=== PATIENT | male | born 1960 | race Caucasian/White ===

== ENCOUNTER 2025-06-26 15:25 | Emergency (ER) | payer OTHER, SELFPAY ==
--- OUTSIDE RECORDS SUMMARY | 2025-06-23 23:37 | XMS_ITS | Continuity of Care Document ---
Author Organization [facility] ter Address [address] [place] [id number]- Care Team Providers Care Incident Response Manager Name Role Phone Zechariah FORTE, Sohail Primary Care Physici an [id number] Date(s): 06/23/25 - 06/23/[address] [address]- Discharge Disposition: A-D/C Home Attending Physician: Meri Zuniga DO Admitting Physician: Meri Zuniga DO Referring Physician: Not on Staff, Referring MD Encounter Type: Disch ES Allergies, Adverse Reactions, Alerts Substance Criticality Severity Reaction Reaction Severity Status sulfamethoxazole-trimetho prim <not entered> Active acetaZOLAMIDE <not entered> Ac tive sulfa drugs hives Active Immunizations Given and Recorded Vaccine Date Status Refusal Reason pneumococcal 23-valent vaccine 12/28/20 Given influenza virus vaccine, inactivated 12/28/20 Give n Medications cloNIDine 0.1 mg oral tablet See Instructions, TAKE 1 TABLET TWICE A DAY NEEDED FOR ANXIETY, # 180 tablet, Refills 1, Tot. Refills 1, Maintenance, 02/11/23 5:09:00 PM EDT, Instructions Replace Required Details, Route to Pharmacy Electronically, [facility], 173, cm, 12/31/22 15:53:00 EST, Height, 86.5, kg, 10/06/22 15:50:00 EST, Dry Weight Start Date: 02/11/23 Status: Ordered Quantity: 180.0 Unit: tablet Repeat number: 2 doxazosin 1 mg oral tablet 1, tablet, By Mouth, Daily, # 90 tablet, Refills 1, Maintenance, 05/15/25 4:07:00 PM EDT, Route to Pharmacy Electronically, [id number], 173, cm, 12/18/24 7:24:00 EST, Height, 84, kg, 12/15/24 1:02:00 EST, Dry Weight Start Date: 05/15/25 Status: Ordered Quantity: 90.0 Unit: tablet Repeat number: 1 hydrOXYzine pamoate 50 mg oral capsule 1 capsule = 50 mg, By Mouth, 2 times a day, PRN Anxiety, # 90 capsule, 0 Refills, Maintenance, 10/16/24 1:32:00 PM EST, Capsule, Partial fill upon patient request if the prescription is for a schedule II opioid drug. Start Date: 10/16/24 Status: Ordered Quantity: 90.0 Unit: capsule Repeat number: 1 lidocaine 4% topical film 1 patch, Topically, 2 times a day, # 6 each, 0 Refills, Maintenance, 06/22/25 7:14:00 PM EDT, Film, [facility]/pharmacy #[id number], Partial fill upon patient request if the prescription is for a schedule II opioiddrug., 1 patch Topically 2 times a day, 173, cm, 06/22/25 11:51:00 EDT, Height, 79, kg, 06/22/25 11:51:00 EDT, Dry Weight Start Date: 06/22/25 Status: Ordered Quantity: 6.0 Unit: each Repeat number: 1 QUEtiapine 100 mg oral tablet 100 mg, 1, tablet, By Mouth, Daily at bedtime, Refills 0, Maintenance, 10/16/24 1:34:00 PM EST, Partial fill upon patient request if the prescription is for a schedule II opioid drug. Start Date: 10/16/24 Status: Ordered Repeat number: 1 tamsulosin 0.4 mg oral capsule 0.4 mg, 1, capsule, By Mouth, Daily, # 30 capsule, Refills 0, Maintenance, 10/16/24 1:33:00 PM EST,Partial fill upon patient request if the prescription is for a schedule II opioid drug. Start Date: 10/16/24 Status: Ordered Quantity: 30.0 Unit: capsule Repeat number: 1 Problem List Condition Confirmation Course Effective Dates Status Health St atus Informant Adjustment disorder Confirmed Active Alcoholism Confirmed Active ALT (SGPT) level raised Confirmed Active Benign prostatic hyperplasia Confirmed Active Cirrhosis of liver Confirmed Active Cough Confirmed Active H/O: Deep vein thrombosis Confirmed Active Hip pain, bilateral Confirmed Active Internal hemorrhoids Confirmed Active Hyperlipidemia, mixed Confirmed Active Nondependent alcohol abuse, episodic Confirmed Active Obesity Confirmed Active Obstructive sleep apnea syndrome Confirmed Active Pulmonary emboli Confirmed Active Elevated PSA Confirmed Active Social History Social History Type Response Smoking Status Never (less than 100 in lifetime) entered on: 02/12/21 Sex Male Sex Representation Male (finding) Patient Care team information Care Team Personnel Name: Abel Vasquez RN Position: [facility] RN Member Role: Primary Care Nurse Name: Ashwini Marcial LPN Position: [facility] RN Member Role: Primary Care Nurse Name: Onelia Preciado RN Position: [facility] RN Member Role: Primary Care Nurse Name: Andrew Barrett Position: [facility] PCO Associate Professional Member Role: [employer] Provider Address: [address] [place] [id number] DD Telecom: Name: Chilango Gonzalez RN Position: [facility] RN Member Role: Primary Care Nurse Name: Chantale Reardon RN Position: [facility] RN Member Role: Primary Care Nurse Name: Mis Hopper RN Position: [facility] RN Member Role: Primary Care Nurse Name: Sohail Apple MD Position: [facility] Physician - Primary Care Member Role: PCP Address: [address] [place] [id number] Telecom: Name: Anne Mistry RN Position: [facility] RN Member Role: Primary Care Nurse Name: Roger Moore RN Position: [facility] RN Member Role: Primary Care Nurse Name: Leonarda Burkett RN Position: [facility] RN Member Role: Primary Care Nurse Name: Richa Joshi RN Position: [facility] RN Member Role: Primary Care Nurse Name: Radha Hinson RN Position: [facility] RN Member Role: Primary Care Nurse Name: Analilia Burks RN Position: [facility] Hospital Facilities Manager Member Role: Primary Care Nurse Care Team Related Persons Name: DENISE BOYD Name: NONE, PT STS Insurance Providers Guarantor name: [facility] Information #: 1 Payer: [employer] MED[employer]ARE ADV PPO Payer Identifier: AISLINN Member Number: [id number] Group Number: [id number] Subscriber Identifier: [id number] Relationship to Subscriber: self Coverage Type: Medicare PPO Coverage Verification Date: Telecom: AISLINN Address:
[2025-06-26 15:44] VITALS: BP 148/62; BP 148/87; PULSE 71; PULSE 88; RESP 18; TEMP 36.8; O2SAT 97; O2SAT 98; BMI 26.6
--- NOTE | 2025-06-26 15:48 | ED_ITS ---
HPI - Alcohol General Chief Complaint: ETOH/Substance Use Stated Complaint: ETOH, chronic back pain Time Seen by Provider: 06/26/25 15:46 Source: patient and RN notes reviewed Mode of arrival: EMS Limitations: no limitations History of Present Illness ED Provider: Germán Lema PA-C HPI narrative: 65-year-old male with medical history of alcohol use disorder presents to the ED by EMS after self calling for request for detox. Patient states he drinks approximately 3-6 25 oz ?Natty dadkatelin's? daily. Patient states he began drinking in 2003 after his son past. Patient states he has chronic thoracic back pain, that is aggravating him today but no change in quality or intensity from his usual baseline. Patient states he does not have history of alcohol withdrawal, has never experienced alcohol withdrawal seizures, and no prior ICU stays to manage alcohol withdrawal. Patient denies chest pain, shortness of breath, nausea, vomiting, headache, visual changes, visual/auditory/tactile hallucinations, SI, HI. Related Data Allergies Allergy/AdvReac Type Severity Reaction Status Date / Time Sulfa (Sulfonamide Allergy Unknown Verified 06/26/25 15:57 Antibiotics) Review of Systems 2 Review of Systems: CONST: Negative for fever, body aches and chills. HENT: Negative for neck pain/stiffness, headache, congestion, sore throat, swelling. EYES: Negative for discharge/pain or vision changes. RESP: Negative for cough/hemoptysis and shortness of breath. CV: Negative chest pain, difficulty breathing, palpitations. ABD: Negative pain, nausea, vomiting. : Negative increase frequency, dysuria, blood in urine or stool. MUSC: Negative for muscle aches, edema. POS chronic thoracic back pain SKIN: Negative rash, lesions/sores. NEURO: Negative headache, dizziness, weakness Yes all other systems are reviewed and are negative PMFSH Past Medical History Attestation statement: The following information was validated with the patient. Social History Social History Smoked in Last 30 Days: No Use of substances other than those prescribed or required for medical reasons: No Advance Directives: No Advance Directives Information Provided: Yes Physical Exam ED Vital Signs: Vital Signs - 24 hr 06/26/25 15:44 06/26/25 18:00 Temperature 98.2 F Pulse Rate 71 82 Respiratory Rate 18 18 Blood Pressure 148/87 H 152/83 H Pulse Oximetry 98 97 Oxygen Delivery Method Room Air Room Air BMI result Body Mass Index 26.6 GENERAL APPEARANCE: ?AxOx4, disheveled appearing, with alcoholic odor on breath, no acute distress. HEENT: ?NC, AT. MMM. EOMI, clear conjunctiva, oropharynx clear. NECK: ?Supple without lymphadenopathy.? No stiffness or restricted ROM. HEART:? Normal rate and regular rhythm, normal S1/S2, no m/r/g LUNGS:? CTAB, moving air well. No crackles or wheezes are heard. ABDOMEN: ?Soft, nontender, nondistended with good bowel sounds heard. BACK: No CVAT, no obvious deformity. TTP over thoracic paraspinal muscles of T5 through T10, no midline tenderness, no bony abnormalities palpated, no overlying skin changes. EXTREMITIES: ?Without cyanosis, clubbing or edema. NEUROLOGICAL: ?Grossly nonfocal. Alert and oriented, moving all 4 extremities. Skin: ?Warm and dry without any rash. Medical Decision Making Medical Decision Making MDM Narrative: 65-year-old male with medical history of alcohol use disorder presents to the ED by EMS after self calling for request for detox. Patient states he drinks approximately 3-6 25 oz ?Natty daddy's? daily. Patient states he began drinking in 2003 after his son past. Patient states he has chronic thoracic back pain, that is aggravating him today but no change in quality or intensity from his usual baseline. Patient states he does not have history of alcohol withdrawal, has never experienced alcohol withdrawal seizures, and no prior ICU stays to manage alcohol withdrawal. VSS, BP of 152/83, pulse rate of 82, respiratory rate of 18, patient afebrile with oral temperature of 98.2?, O2 saturation 97% on room air. On physical exam, patient without slurring, patient is somewhat agitated, states he wants to be taken to [facility] for care. Patient with chronic back pain, TTP over thoracic paraspinal muscles through T5 through T10, no midline spinal tenderness, no bony abnormalities. Cardiac exam with normal rate and rhythm, no murmurs/rubs/gallops, lungs clear to auscultation bilaterally, abdomen soft, nontender. Patient denies SI/HI. Is requesting alcohol detox facility, but is picky about where he wants to be sent, refusing [facility] or any other detox in the area. Labs reveal mild leukopenia of 3.8, H and H stable, no electrolyte abnormalities, no significant transaminitis. UA negative for blood or infection. U tox positive for barbiturates, benzodiazepines. ETOH level 263 at 4:35 p.m. Course 19:14- you can cleared by recovery team, given resources to self present at detox. Patient eating sandwich, drinking Gatorade in department. I observed patient ambulating, patient with slow, steady gait due to chronic back pain, however no ataxic gait, no speech slurring. Patient does not have sober ride home, has to walk home. In my clinical opinion, I do not believe that patient is acutely intoxicated at this time, I offered patient hospital phone to call for friend or family member, states he does not have anyone to help him. Vital signs remained stable, patient CIWA score of 0, no signs of withdrawal- less likely alcohol withdrawal Differential Diagnosis Differential Diagnoses: The differential diagnosis associated with the presentation includes Alcohol intoxication Alcohol withdrawal Electrolyte abnormality SI HI Admission/Observation Consideration of admission/observation: Escalation of care including admission/observation considered Lab Data MDM Lab Attestation statement: I reviewed the patient's lab results. 06/26/25 16:35 06/26/25 16:35 Labs: Lab Results 06/26/25 06/26/25 Range/Units 16:16 16:35 WBC 3.8 L (4.8-10.8) X10*3/uL RBC 5.22 (4.60-5.80) X10*6/uL Hgb 15.0 (14.0-18.0) g/dl Hct 43.8 (42.0-52.0) % MCV 83.9 (80.0-98.0) fL MCH 28.7 (27.0-33.0) pg MCHC 34.2 (31.0-36.0) g/dl RDW 15.7 (11.0-16.0) % Plt Count 223 (160-400) X10*3/uL MPV 8.6 L (9.4-12.4) fL Immature Gran % (Auto) 0.3 (0.0-0.4) % Neut % (Auto) 50.4 (45-73) % Lymph % (Auto) 41.5 H (20-40) % Jefferson % (Auto) 3.7 (2-11) % Eos % (Auto) 3.1 (0-4) % Baso % (Auto) 1.0 (0-2) % Lymph # (Auto) 1.6 (1.2-4.9) X10*3/uL Jefferson # (Auto) 0.1 (0.1-1.2) X10*3/uL Eos # (Auto) 0.1 (0.0-0.4) X10*3/uL Baso # (Auto) 0.0 (0.0-0.2) X10*3/uL Abs Immat Gran (auto) 0.01 (0.00-0.03) X10*3/uL Absolute Neuts (auto) 1.9 L (2.0-8.3) x10*3/uL Absolute Nucleated RBC 0.000 (0.0-0.012) X10*3/uL Nucleated RBC % (auto) 0.0 (0.0-0.2) /100WBC Sodium 143 (135-145) mmol/L Potassium 4.0 (3.3-5.1) mmol/L Chloride 109 H (96-108) mmol/L Carbon Dioxide 19 L (22-29) mmol/L Anion Gap 19 (12-20) BUN 8 L (9-16) mg/dL Creatinine 0.90 (0.5-1.4) mg/dL Estim Creat Clear Calc 79.1 Estimated GFR > 60 Random Glucose 86 (60-115) mg/dL Calcium 8.5 (8.4-10.2) mg/dL Magnesium 2.3 (1.6-2.6) mg/dL Total Bilirubin 0.4 (0.0-1.0) mg/dL AST 38 H (5-37) U/L ALT 33 (0-40) U/L Alkaline Phosphatase 99 (39-117) U/L Total Protein 7.9 (6.5-8.0) g/dL Albumin 4.0 (3.5-5.0) g/dL Urine Color Yellow Urine Appearance Clear Urine pH 6.5 (5.0-9.0) Ur Specific Hardy <= 1.005 (1.005-1.025) Urine Protein Negative (Neg-Trace) mg/dL Urine Glucose (UA) Negative (Negative) mg/dL Urine Ketones Negative (Negative) mg/dL Urine Blood Negative (Negative) Urine Nitrite Negative (Negative) Ur Leukocyte Esterase Negative (Negative) Urine Opiates Screen Not Detected (Not Detect) Ur Buprenorphine Scrn Not Detected (Not Detect) ng/mL Ur Oxycodone Screen Not Detected (Not Detect) ng/mL Urine Methadone Screen Not Detected (Not Detect) ng/mL Urine Fentanyl Screen Not Detected (Not Detect) Ur Barbiturates Screen POSITIVE H (Not Detect) Ur Phencyclidine Scrn Not Detected (Not Detect) Ur Amphetamines Screen Not Detected (Not Detect) U Benzodiazepines Scrn POSITIVE H (Not Detect) Urine Cocaine Screen Not Detected (Not Detect) U Marijuana (THC) Screen Not Detected (Not Detect) Ethyl Alcohol 263 mg/dL External Record Review External record reviewed: Inpatient record, Office record and Outpatient record Prescription Management I considered prescription management with: Pain Medication I offered patient Tylenol, ibuprofen for chronic back pain, patient states he has not take any medication, as medications are poison. Chronic Conditions Patient?s care impacted by: Other (Alcohol use disorder) Discharge Plan Discharge Clinical Impression: Alcoholic intoxication Patient Disposition: Home, Self-Care Instructions: Alcohol Withdrawal (ED), Alcohol Use Disorder (ED) Additional Instructions: You were evaluated in the emergency department today for help with alcohol detox. Your labs did not reveal any evidence of infection, or electrolyte abnormality. Your urinalysis was negative for any infection or blood in the urine. You met with the recovery team in the department today, but declined formal referral. You were given resources to self present at a detox in the [facility] which you preferred. Alcohol use disorder You were seen in the Emergency Department today for treatment of alcohol use disorder.? You may have been given medications to help with your withdrawal symptoms.? Please do not drink alcohol with them. This is very dangerous and can cause respiratory depression or other adverse reactions depending on the medication. If you would like to cut down or stop your alcohol use please consider calling our outpatient Addiction Treatment office:? [facility] (M-F [id number]) [address] [place] [address] [address] You have also been given a list of treatment providers in the area that can assist as well.? If you experience seizures, vomiting blood, black stools, falls, severe headache, chest pain, fevers, trouble breathing, hallucinations or any other concerns you need to call 911 or seek immediate care. Please stay hydrated. Print Language: [place]
[2025-06-26 16:29] LABS: Appearance Urine Clear; Glucose Urine UA Negative (Negative); PH 6.5 (5.0-9.0); Specific Gravity - Urine <= 1.005 (1.005-1.025)
[2025-06-26 16:38] LABS: MANUAL DIFF FLAG NO
[2025-06-26 16:38] LABS: Cannabinoid Screen Urine Not Detected (Not Detect)
--- OUTSIDE RECORDS SUMMARY | 2025-06-26 16:38 | XMS_ITS ---
Author Name [facility] Organization Unknown Results Test Name/Text Value Interpretation Date Range Source Magnesium SerPl-mCnc 1.6 mg/dL Below low normal 12/27/2024 1.7 - 2.8 [facility] Phosphate SerPl-mCnc 4.4 mg/dL Normal 12/27/2024 2.5 - 4.5 [facility] Glucose SerPl-mCnc 106.0 mg/dL Normal 12/27/2024 70 - 199 [facility] CO2 SerPl-sCnc 28.0 mmol/L Normal 12/27/2024 24 - 32 [facility] Anion Gap SerPl-sCnc 8.0 Normal 12/27/2024 5 - 14 [facility] ALT SerPl-cCnc 85.0 unit/L Above high normal 12/27/2024 7 - 52 [facility] Chloride SerPl-sCnc 103.0 mmol/L Normal 12/27/2024 98 - 107 [facility] BUN/Creat SerPl 10.0 Below low normal 12/27/2024 12 - 2 0 [facility] Calcium SerPl-mCnc 9.1 mg/dL Normal 12/27/2024 8.4 - 10.2 [facility] Creat SerPl-mCnc 1.0 mg/dL Normal 12/27/2024 0.7 - 1.3 [facility] Bilirub SerPl-mCnc 0.4 mg/dL Normal 12/27/2024 0.3 - 1 [facility] BUN SerPl-mCnc 10.0 mg/dL Normal 12/27/2024 9 - 20 [facility] Prot SerPl-mCnc 6.3 g/dL Below low normal 12/27/2024 6.4 - 8.5 [facility] ALP SerPl-cCnc 65.0 unit/L Normal 12/27/2024 34 - 104 [facility] Sodium SerPl-sCnc 139.0 mmol/L Normal 12/27/2024 135 - 14 5 [facility] AST SerPl-cCnc 66.0 unit/L Above high normal 12/27/2024 5 - 40 [facility] Potassium SerPl-sCnc 4.0 mmol/L Normal 12/27/2024 3.5 - 5.1 [facility] Albumin SerPl-mCnc 3.6 g/dL Normal 12/27/2024 3.5 - 5 [facility] eGFRcr SerPlBld CKD-EPI 2020 84.0 mL/min/1.73m2 Normal 12/27/2024 - [facility] MCH RBC Qn Auto 29.2 pcg Normal 12/27/2024 25 - 33 [facility] Hct VFr Bld Auto 37.4 % Below low normal 12/27/2024 40 - 54 [facility] WBC # Bld Auto 5.6 K/mcL Normal 12/27/2024 4 - 10.5 [facility] RDW RBC Auto-Rto 16.3 % Normal 12/27/2024 12.1 - 17.7 [facility] RBC # Bld Auto 4.33 M/mcL Below low normal 12/27/2024 4.7 - 6 [facility] Platelet # Bld Auto 228.0 K/mcL Normal 12/27/2024 150 - 450 [facility] MCHC RBC Auto-mCnc 33.8 g/dL Normal 12/27/2024 32 - 36 [facility] PMV Bld Auto 6.9 FL Below low normal 12/27/2024 7.4 - 11. 4 [facility] Hgb Bld-mCnc 12.6 g/dL Below low normal 12/27/2024 13.5 - 18 [facility] MCV RBC Auto 86.2 FL Normal 12/27/2024 78 - 100 [facility] Phosphate SerPl-mCnc 3.5 mg/dL Normal 12/26/2024 2.5 - 4.5 [facility] CO2 SerPl-sCnc 30.0 mmol/L Normal 12/26/2024 24 - 32 [facility] BUN/Creat SerPl 10.0 Below low normal 12/26/2024 12 - 2 0 [facility] Calcium SerPl-mCnc 8.8 mg/dL Normal 12/26/2024 8.4 - 10.2 [facility] eGFRcr SerPlBld CKD-EPI 2020 84.0 mL/min/1.73m2 Normal 12/26/2024 - [facility] Anion Gap SerPl-sCnc 5.0 Normal 12/26/2024 5 - 14 [facility] ALT SerPl-cCnc 65.0 unit/L Above high normal 12/26/2024 7 - 52 [facility] Creat SerPl-mCnc 1.0 mg/dL Normal 12/26/2024 0.7 - 1.3 [facility] AST SerPl-cCnc 51.0 unit/L Above high normal 12/26/2024 5 - 40 [facility] Chloride SerPl-sCnc 107.0 mmol/L Normal 12/26/2024 98 - 107 [facility] Bilirub SerPl-mCnc 0.4 mg/dL Normal 12/26/2024 0.3 - 1 [facility] BUN SerPl-mCnc 10.0 mg/dL Normal 12/26/2024 9 - 20 [facility] Potassium SerPl-sCnc 4.0 mmol/L Normal 12/26/2024 3.5 - 5.1 [facility] Glucose SerPl-mCnc 135.0 mg/dL Above high normal 12/26/2024 70 - 99 [facility] Prot SerPl-mCnc 5.7 g/dL Below low normal 12/26/2024 6.4 - 8.5 [facility] Sodium SerPl-sCnc 142.0 mmol/L Normal 12/26/2024 135 - 14 5 [facility] ALP SerPl-cCnc 66.0 unit/L Normal 12/26/2024 34 - 104 [facility] Albumin SerPl-mCnc 3.3 g/dL Below low normal 12/26/2024 3.5 - 5 [facility] Magnesium SerPl-mCnc 1.7 mg/dL Normal 12/26/2024 1.7 - 2.8 [facility] PMV Bld Auto 7.4 FL Normal 12/26/2024 7.4 - 11.4 [facility] Hct VFr Bld Auto 34.9 % Below low normal 12/26/2024 40 - 54 [facility] Hgb Bld-mCnc 11.7 g/dL Below low normal 12/26/2024 13.5 - 18 [facility] MCH RBC Qn Auto 28.9 pcg Normal 12/26/2024 25 - 33 [facility] RDW RBC Auto-Rto 16.2 % Normal 12/26/2024 12.1 - 17.7 [facility] WBC # Bld Auto 4.2 K/mcL Normal 12/26/2024 4 - 10.5 [facility] Platelet # Bld Auto 208.0 K/mcL Normal 12/26/2024 150 - 450 [facility] MCHC RBC Auto-mCnc 33.6 g/dL Normal 12/26/2024 32 - 36 [facility] MCV RBC Auto 86.1 FL Normal 12/26/2024 78 - 100 [facility] RBC # Bld Auto 4.06 M/mcL Below low normal 12/26/2024 4.7 - 6 [facility] BUN/Creat SerPl 15.7 Normal 12/25/2024 12 - 20 [facility] Bilirub SerPl-mCnc 0.6 mg/dL Normal 12/25/2024 0.3 - 1 [facility] Glucose SerPl-mCnc 112.0 mg/dL Normal 12/25/2024 70 - 199 [facility] BUN SerPl-mCnc 11.0 mg/dL Normal 12/25/2024 9 - 20 [facility] Albumin SerPl-mCnc 3.2 g/dL Below low normal 12/25/2024 3.5 - 5 [facility] Chloride SerPl-sCnc 106.0 mmol/L Normal 12/25/2024 98 - 107 [facility] eGFRcr SerPlBld CKD-EPI 2020 103.0 mL/min/1.73m2 Normal 12/25/2024 - [facility] CO2 SerPl-sCnc 26.0 mmol/L Normal 12/25/2024 24 - 32 [facility] Anion Gap SerPl-sCnc 8.0 Normal 12/25/2024 5 - 14 [facility] Creat SerPl-mCnc 0.7 mg/dL Normal 12/25/2024 0.7 - 1.3 [facility] Potassium SerPl-sCnc 3.6 mmol/L Normal 12/25/2024 3.5 - 5.1 [facility] Sodium SerPl-sCnc 140.0 mmol/L Normal 12/25/2024 135 - 14 5 [facility] Prot SerPl-mCnc 5.5 g/dL Below low normal 12/25/2024 6.4 - 8.5 [facility] ALT SerPl-cCnc 55.0 unit/L Above high normal 12/25/2024 7 - 52 [facility] AST SerPl-cCnc 41.0 unit/L Above high normal 12/25/2024 5 - 40 [facility] Calcium SerPl-mCnc 8.2 mg/dL Below low normal 12/25/2024 8.4 - 10.2 [facility] ALP SerPl-cCnc 55.0 unit/L Normal 12/25/2024 34 - 104 [facility] Phosphate SerPl-mCnc 4.1 mg/dL Normal 12/25/2024 2.5 - 4.5 [facility] Magnesium SerPl-mCnc 1.7 mg/dL Normal 12/25/2024 1.7 - 2.8 [facility] Platelet # Bld Auto 198.0 K/mcL Normal 12/25/2024 150 - 450 [facility] MCH RBC Qn Auto 29.5 pcg Normal 12/25/2024 25 - 33 [facility] RDW RBC Auto-Rto 15.7 % Normal 12/25/2024 12.1 - 17.7 [facility] MCHC RBC Auto-mCnc 34.5 g/dL Normal 12/25/2024 32 - 36 [facility] WBC # Bld Auto 4.4 K/mcL Normal 12/25/2024 4 - 10.5 [facility] MCV RBC Auto 85.4 FL Normal 12/25/2024 78 - 100 [facility] RBC # Bld Auto 3.93 M/mcL Below low normal 12/25/2024 4.7 - 6 [facility] PMV Bld Auto 7.1 FL Below low normal 12/25/2024 7.4 - 11. 4 [facility] Hct VFr Bld Auto 33.6 % Below low normal 12/25/2024 40 - 54 [facility] Hgb Bld-mCnc 11.6 g/dL Below low normal 12/25/2024 13.5 - 18 [facility] RSV RNA Resp Ql BONI+probe Not Detected Normal 12/24/2024 [facility] FLUAV RNA Nph Ql BONI+probe Not Detected Normal 12/24/2024 [facility] FLUBV RNA Nph Ql BONI+probe Not Detected Normal 12/24/2024 [facility] SARS-CoV-2 RNA Resp Ql BONI+probe Not Detected Normal 12/24/2024 [facility] Magnesium SerPl-mCnc 1.8 mg/dL Normal 12/24/2024 1.7 - 2.8 [facility] Phosphate SerPl-mCnc 3.4 mg/dL Normal 12/24/2024 2.5 - 4.5 [facility] Bilirub SerPl-mCnc 0.7 mg/dL Normal 12/24/2024 0.3 - 1 [facility] AST SerPl-cCnc 53.0 unit/L Above high normal 12/24/2024 5 - 40 [facility] eGFRcr SerPlBld CKD-EPI 2020 99.0 mL/min/1.73m2 Normal 12/24/2024 - [facility] CO2 SerPl-sCnc 25.0 mmol/L Normal 12/24/2024 24 - 32 [facility] Calcium SerPl-mCnc 7.9 mg/dL Below low normal 12/24/2024 8.4 - 10.2 [facility] Anion Gap SerPl-sCnc 6.0 Normal 12/24/2024 5 - 14 [facility] Albumin SerPl-mCnc 3.2 g/dL Below low normal 12/24/2024 3.5 - 5 [facility] Creat SerPl-mCnc 0.8 mg/dL Normal 12/24/2024 0.7 - 1.3 [facility] Sodium SerPl-sCnc 138.0 mmol/L Normal 12/24/2024 135 - 14 5 [facility] BUN SerPl-mCnc 12.0 mg/dL Normal 12/24/2024 9 - 20 [facility] Potassium SerPl-sCnc 3.9 mmol/L Normal 12/24/2024 3.5 - 5.1 [facility] Glucose SerPl-mCnc 90.0 mg/dL Normal 12/24/2024 70 - 199 [facility] BUN/Creat SerPl 15.0 Normal 12/24/2024 12 - 20 [facility] Chloride SerPl-sCnc 107.0 mmol/L Normal 12/24/2024 98 - 107 [facility] Prot SerPl-mCnc 5.8 g/dL Below low normal 12/24/2024 6.4 - 8.5 [facility] ALP SerPl-cCnc 50.0 unit/L Normal 12/24/2024 34 - 104 [facility] ALT SerPl-cCnc 64.0 unit/L Above high normal 12/24/2024 7 - 52 [facility] Platelet # Bld Auto 212.0 K/mcL Normal 12/24/2024 150 - 450 [facility] WBC # Bld Auto 3.9 K/mcL Below low normal 12/24/2024 4 - 10. 5 [facility] MCV RBC Auto 85.9 FL Normal 12/24/2024 78 - 100 [facility] MCHC RBC Auto-mCnc 34.4 g/dL Normal 12/24/2024 32 - 36 [facility] RDW RBC Auto-Rto 16.4 % Normal 12/24/2024 12.1 - 17.7 [facility] RBC # Bld Auto 4.23 M/mcL Below low normal 12/24/2024 4.7 - 6 [facility] MCH RBC Qn Auto 29.6 pcg Normal 12/24/2024 25 - 33 [facility] Hgb Bld-mCnc 12.5 g/dL Below low normal 12/24/2024 13.5 - 18 [facility] Hct VFr Bld Auto 36.3 % Below low normal 12/24/2024 40 - 54 [facility] PMV Bld Auto 7.7 FL Normal 12/24/2024 7.4 - 11.4 [facility] HBV surface Ag SerPl Ql IA Negative Normal 12/23/2024 - [facility] HBV core IgM SerPl Ql IA Negative Normal 12/23/2024 - [facility] HAV IgM SerPl Ql IA Negative Normal 12/23/2024 - [facility] HCV Ab SerPl Ql IA Negative Normal 12/23/2024 - [facility] Platelet # Bld Auto 217.0 K/mcL Normal 12/23/2024 150 - 450 [facility] Monocytes/leuk NFr Bld Auto 23.0 % Above high normal 12/23/2024 2 - 12 [facility] WBC # Bld Auto 3.7 K/mcL Below low normal 12/23/2024 4 - 10. 5 [facility] Neutrophils # Bld Auto 1.7 K/mcL Below low normal 12/23/2024 1.8 - 7.8 [facility] Hgb Bld-mCnc 11.7 g/dL Below low normal 12/23/2024 13.5 - 18 [facility] Basophils # Bld Auto 0.1 K/mcL Normal 12/23/2024 0 - 0.2 [facility] RDW RBC Auto-Rto 15.9 % Normal 12/23/2024 12.1 - 17.7 [facility] Lymphocytes/leuk NFr Bld Auto 26.1 % Normal 12/23/2024 20 - 48 [facility] PMV Bld Auto 7.2 FL Below low normal 12/23/2024 7.4 - 11. 4 [facility] Hct VFr Bld Auto 34.7 % Below low normal 12/23/2024 40 - 54 [facility] Eosinophil # Bld Auto 0.1 K/mcL Normal 12/23/2024 0 - 0.5 [facility] Lymphocytes # Bld Auto 1.0 K/mcL Normal 12/23/2024 1 - 3.2 [facility] Monocytes # Bld Auto 0.9 K/mcL Above high normal 12/23/2024 0 - 0.8 [facility] Basophils/leuk NFr Bld Auto 2.5 % Above high normal 12/23/2024 0 - 2 [facility] MCHC RBC Auto-mCnc 33.7 g/dL Normal 12/23/2024 32 - 36 [facility] RBC # Bld Auto 4.03 M/mcL Below low normal 12/23/2024 4.7 - 6 [facility] Neutrophils/leuk NFr Bld Auto 45.2 % Normal 12/23/2024 44 - 74 [facility] Eosinophil/leuk NFr Bld Auto 3.2 % Normal 12/23/2024 0 - 6 [facility] MCV RBC Auto 86.1 FL Normal 12/23/2024 78 - 100 [facility] MCH RBC Qn Auto 29.0 pcg Normal 12/23/2024 25 - 33 [facility] eGFRcr SerPlBld CKD-EPI 2020 95.0 mL/min/1.73m2 Normal 12/23/2024 - [facility] Potassium SerPl-sCnc 3.5 mmol/L Normal 12/23/2024 3.5 - 5.1 [facility] Sodium SerPl-sCnc 144.0 mmol/L Normal 12/23/2024 135 - 14 5 [facility] CO2 SerPl-sCnc 21.0 mmol/L Below low normal 12/23/2024 24 - 32 [facility] BUN/Creat SerPl 14.4 Normal 12/23/2024 12 - 20 [facility] Calcium SerPl-mCnc 7.5 mg/dL Below low normal 12/23/2024 8.4 - 10.2 [facility] Chloride SerPl-sCnc 110.0 mmol/L Above high normal 12/23/2024 98 - 107 [facility] Glucose SerPl-mCnc 94.0 mg/dL Normal 12/23/2024 70 - 199 [facility] BUN SerPl-mCnc 13.0 mg/dL Normal 12/23/2024 9 - 20 [facility] Anion Gap SerPl-sCnc 13.0 Normal 12/23/2024 5 - 14 [facility] Creat SerPl-mCnc 0.9 mg/dL Normal 12/23/2024 0.7 - 1.3 [facility] Bilirub SerPl-mCnc 0.7 mg/dL Normal 12/23/2024 0.3 - 1 [facility] ALP SerPl-cCnc 50.0 unit/L Normal 12/23/2024 34 - 104 [facility] Albumin/Glob SerPl 1.3 Normal 12/23/2024 [facility] AST SerPl-cCnc 63.0 unit/L Above high normal 12/23/2024 5 - 40 [facility] ALT SerPl-cCnc 77.0 unit/L Above high normal 12/23/2024 7 - 52 [facility] Albumin SerPl-mCnc 3.5 g/dL Normal 12/23/2024 3.5 - 5 [facility] Globulin Ser Calc-mCnc 2.6 g/dL Normal 12/23/2024 2.3 - 3.5 [facility] Prot SerPl-mCnc 6.1 g/dL Below low normal 12/23/2024 6.4 - 8.5 [facility] Bilirub Direct SerPl-mCnc 0.1 mg/dL Normal 12/23/2024 0 - 0.2 [facility] Magnesium SerPl-mCnc 1.7 mg/dL Normal 12/23/2024 1.7 - 2.8 [facility] Phosphate SerPl-mCnc 3.3 mg/dL Normal 12/23/2024 2.5 - 4.5 [facility] AST SerPl-cCnc 77.0 unit/L Above high normal 12/23/2024 5 - 40 [facility] Albumin/Glob SerPl 1.3 Normal 12/23/2024 [facility] Globulin Ser Calc-mCnc 3.2 g/dL Normal 12/23/2024 2.3 - 3.5 [facility] ALP SerPl-cCnc 65.0 unit/L Normal 12/23/2024 34 - 104 [facility] Bilirub Direct SerPl-mCnc 0.1 mg/dL Normal 12/23/2024 0 - 0.2 [facility] Albumin SerPl-mCnc 4.2 g/dL Normal 12/23/2024 3.5 - 5 [facility] Bilirub SerPl-mCnc 0.5 mg/dL Normal 12/23/2024 0.3 - 1 [facility] ALT SerPl-cCnc 100.0 unit/L Above high normal 12/23/2024 7 - 52 [facility] Prot SerPl-mCnc 7.4 g/dL Normal 12/23/2024 6.4 - 8.5 [facility] eGFRcr SerPlBld CKD-EPI 2020 84.0 mL/min/1.73m2 Normal 12/23/2024 - [facility] BUN SerPl-mCnc 11.0 mg/dL Normal 12/23/2024 9 - 20 [facility] Sodium SerPl-sCnc 139.0 mmol/L Normal 12/23/2024 135 - 14 5 [facility] Potassium SerPl-sCnc 3.1 mmol/L Below low normal 12/23/2024 3.5 - 5.1 [facility] BUN/Creat SerPl 11.0 Below low normal 12/23/2024 12 - 2 0 [facility] CO2 SerPl-sCnc 22.0 mmol/L Below low normal 12/23/2024 24 - 32 [facility] Glucose SerPl-mCnc 157.0 mg/dL Normal 12/23/2024 70 - 199 [facility] Chloride SerPl-sCnc 101.0 mmol/L Normal 12/23/2024 98 - 107 [facility] Calcium SerPl-mCnc 8.6 mg/dL Normal 12/23/2024 8.4 - 10.2 [facility] Anion Gap SerPl-sCnc 16.0 Above high normal 12/23/2024 5 - 14 [facility] Creat SerPl-mCnc 1.0 mg/dL Normal 12/23/2024 0.7 - 1.3 [facility] Ethanol SerPl-mCnc 333.0 mg/dL Above high normal 12/23/2024 0 - 10 [facility] Lipase SerPl-cCnc 104.0 unit/L Above high normal 12/23/2024 11 - 82 [facility] RBC # Bld Auto 5.22 M/mcL Normal 12/23/2024 4.7 - 6 [facility] Basophils/leuk NFr Bld Auto 2.7 % Above high normal 12/23/2024 0 - 2 [facility] Eosinophil # Bld Auto 0.1 K/mcL Normal 12/23/2024 0 - 0.5 [facility] Platelet # Bld Auto 259.0 K/mcL Normal 12/23/2024 150 - 450 [facility] Neutrophils # Bld Auto 1.7 K/mcL Below low normal 12/23/2024 1.8 - 7.8 [facility] Eosinophil/leuk NFr Bld Auto 2.3 % Normal 12/23/2024 0 - 6 [facility] Neutrophils/leuk NFr Bld Auto 35.3 % Below low normal 12/23/2024 44 - 74 [facility] MCHC RBC Auto-mCnc 34.0 g/dL Normal 12/23/2024 32 - 36 [facility] Hgb Bld-mCnc 15.1 g/dL Normal 12/23/2024 13.5 - 18 [facility] Monocytes # Bld Auto 0.8 K/mcL Normal 12/23/2024 0 - 0.8 [facility] Lymphocytes/leuk NFr Bld Auto 42.7 % Normal 12/23/2024 20 - 48 [facility] Monocytes/leuk NFr Bld Auto 17.0 % Above high normal 12/23/2024 2 - 12 [facility] Hct VFr Bld Auto 44.3 % Normal 12/23/2024 40 - 54 [facility] WBC # Bld Auto 4.9 K/mcL Normal 12/23/2024 4 - 10.5 [facility] PMV Bld Auto 6.9 FL Below low normal 12/23/2024 7.4 - 11. 4 [facility] RDW RBC Auto-Rto 16.0 % Normal 12/23/2024 12.1 - 17.7 [facility] MCV RBC Auto 84.8 FL Normal 12/23/2024 78 - 100 [facility] Lymphocytes # Bld Auto 2.1 K/mcL Normal 12/23/2024 1 - 3.2 [facility] Basophils # Bld Auto 0.1 K/mcL Normal 12/23/2024 0 - 0.2 [facility] MCH RBC Qn Auto 28.9 pcg Normal 12/23/2024 25 - 33 [facility] History of Medication Use Medication Directions Dispensed Refills Start Date End Date [facility] multivitamin tablet Take 1 tablet by mouth 1 (one) time each day. 12/28/2024 active hydrOXYzine HCL (ATARAX) tablet 10 mg 10 mg, oral, Once, On Tue12/26/24 at 2145, For 1 dose 12/27/2024 completed ondansetron (PF) (ZOFRAN) injection 4 mg 4 mg, intravenous, Once, On Tue12/26/24 at 2130, For 1 dose, -ONLY give IV if patient is unable to take orally. -If inadequate response within 30 minutes, proceed to next-line agent or contact provider if no further options ordered. 12/27/2024 5 completed magnesium oxide (MAG-OX) 400 mg (241.3 elemental magnesium) tablet Take 1 tablet (400 mg total) by mouth 2 (two) times a day for 3 days, THEN 1 tablet (400 mg total) 1 (one) time each day for 10 days. 12/27/2024 active naltrexone (DEPADE) 50 mg tablet Take 1 tablet (50 mg total) by mouth 1 (one) time each day. 12/26/2024 5 active buPROPion XL (WELLBUTRIN XL) 24 hr tablet 300 mg 300 mg, oral, Daily, First dose on Tue12/26/24 at 1415, Do not crush, chew, or split. 12/26/2024 active multivitamin tablet 1 tablet 1 tablet (1 each), oral, Daily, First dose on Tue12/26/24 at 1400 12/26/2024 active benzocaine-menthoL (CEPACOL SORE THROAT) 15-3.6 mg lozenge 1 lozenge 1 lozenge, Mouth/Throat, Every 2 hours PRN, sore throat, Starting on Tue12/24/24 at 0810 12/24/2024 active QUEtiapine (SEROquel) tablet 100 mg 100 mg, oral, Nightly, First dose on Tue12/23/24 at 2100 12/24/2024 active gabapentin (NEURONTIN) capsule 300 mg 300 mg, oral, Every 8 hours scheduled, First dose on Tue12/23/24 at 0915 12/23/2024 aborted acetaminophen (TYLENOL) tablet 650 mg 650 mg, oral, Every 6 hours PRN, mild pain, Starting on Tue12/25/24 at 0414 12/23/2024 5 active calcium gluconate 2 gram/100 mL IVPB (premix) 2 g 2 g, intravenous, at 100 mL/hr, Administer over 60 Minutes, Once, On Tue12/23/24 at 1215, For 1 dose 12/23/2024 5 completed diazePAM (VALIUM) injection 5 mg 5 mg, intravenous, Once, On 12/22/24 at 2159, For 1 dose, Indications: abnormal ECG 12/23/2024 5 completed diazePAM (VALIUM) tablet 5 mg 5 mg, oral, Once, On 12/22/24 at 1939, For 1 dose 12/23/2024 5 completed LORazepam (ATIVAN) injection 2 mg 2 mg, intravenous, Once, On 12/22/24 at 2159, For 1 dose, Prior to IV use, lorazepam injection should be DILUTED with an equal volume of compatible solution; Rate of administration should NOT exceed 2 mg/min. 12/23/2024 5 completed LORazepam (ATIVAN) tablet 2 mg 2 mg, oral, Once, On 12/22/24 at 1939, For 1 dose 12/23/2024 5 completed magnesium sulfate 2 gram/50 mL (4 %) IVPB 2 g 2 g, intravenous, at 25 mL/hr, Administer over 2 Hours, Once, On 12/23/24 at 1215, For 1 dose 12/23/2024 5 completed potassium chloride (KLOR-CON M20) CR tablet 40 mEq 40 mEq, oral, Once, On 12/22/24 at 2115, For 1 dose, Tablet may be swallowed whole (do not crush/chew/suck on) OR broken in half and each half swallowed separately OR dissolved (whole tablet) in ~4 ounces of water (allow ~2 minutes to dissolve, stir well and administer immediately). 12/23/2024 5 completed sodium chloride 0.9 % bolus 1,000 mL 1,000 mL, intravenous, at 2,000 mL/hr, Administer over 30 Minutes, Once, On 12/22/24 at 2219, For 1 dose 12/23/2024 5 completed sodium chloride 0.9 % infusion 125 mL/hr, intravenous, Continuous, Starting on 12/23/24 at 0015, For 10 hours 12/23/2024 5 completed cloNIDine (CATAPRES) tablet 0.1 mg 0.1 mg, oral, 2 times daily PRN, Take BID PRN for anxiety, Starting on 12/22/24 at 2352 12/23/2024 active doxazosin (CARDURA) tablet 1 mg 1 mg, oral, Daily, First dose on 12/23/24 at 0900 12/23/2024 active enoxaparin (LOVENOX) injection 40 mg 40 mg, subcutaneous, Every 24 hours scheduled, First dose on 12/23/24 at 0900, Indication: VTE/PE Prophylaxis 12/23/2024 active folic acid (FOLVITE) tablet 1 mg 1 mg, oral, Daily, First dose on 12/23/24 at 0900 12/23/2024 active hydrOXYzine HCL (ATARAX) tablet 50 mg 50 mg, oral, 2 times daily PRN, anxiety, Starting on 12/22/24 at 2352 12/23/2024 active tamsulosin (FLOMAX) 24 hr capsule 0.4 mg 0.4 mg, oral, Daily, First dose on 12/23/24 at 0900, For oral administration: capsules should be swallowed whole (Do not crush, chew, or open). For tube administration: open capsule and administer with water (granules should NOT be crushed). 12/23/2024 active thiamine (VITAMIN B-1) 100 mg tablet Take 1 tablet (100 mg total) by mouth 1 (one) time each day. 12/23/2024 active hydrOXYzine pamoate (VISTARIL) 50 mg capsule Take 1 capsule (50 mg total) by mouth 2 (two) times a day if needed for anxiety. 01/24/2021 active QUEtiapine (SEROquel) 100 mg tablet Take 1 tablet (100 mg total) by mouth at bedtime. 01/24/2021 active magnesium oxide (MAG-OX) 400 mg magnesium tablet Take 1 tablet (400 mg total) by mouth 1 (one) time each day. aborted buPROPion XL (WELLBUTRIN XL) 300 mg 24 hr tablet Take 1 tablet (300 mg total) by mouth 1 (one) time each day. Do not crush, chew, or split. active cloNIDine (CATAPRES) 0.1 mg tablet Take 1 tablet (0.1 mg total) by mouth 2 (two) times a day if needed. active doxazosin (CARDURA) 1 mg tablet Take 1 tablet (1 mg total) by mouth 1 (one) time each day. active multivit with minerals/lutein (MULTIVITAMIN 50 PLUS ORAL) Take by mouth. active zinc sulfate (Zinc-15) 66 mg tablet Take by mouth. active Allergies Allergen Reaction Severity Comment Documented Date Source Statu s SULFA (SULFONAMIDE ANTIBIOTICS) ANAPHYLAXIS Anaphylaxis 10yrs ago per patient 12/23/2024 [facility] active Problems Problem Status Onset Date Problem Type Date of Resoluti on Source Alcohol withdrawal active 2024-12-22 ProblemAct [facility] Encounters Encounter Type Encounter Reason Primary Diagnosis Location Date Inpatient Detox Alcohol use, unspecified with withdrawal, unspecified [facility] 12/22/2024 Care Team Organization Name Specialty Phone Email Start Date End Da te [facility] 01/30/2025 [facility] 12/23/2024
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
--- OUTSIDE RECORDS SUMMARY | 2025-06-26 16:38 | XMS_ITS | Clinical Summary ---
Author Organization [facility] Address [address] [place] [address] Care Team Providers Care Certified Addiction Counselor Name Role Phone Sohail Apple MD Primary Care Provide r Allergies Active Allergy Reactions Criticality Noted Date Comments Acetazolamide 04/15/2023 Sulfa Antibiotics 04/15/2023 Medications Medication Sig Dispensed Refills Start Date End Date Status benzoyl peroxide 10 % external wash APPLY TOPICALLY TO THE AFFECTED AREA DAILY IN SHOWER. MAY CAUSE BLEACHING 0 03/05/2023 Active buPROPion (WELLBUTRIN XL) 300 MG 24 hr tablet 0 03/24/2023 Active cloNIDine (CATAPRES) tablet 0.1 mg 0 03/24/2023 Active Thiamine HCl (B-1) 100 MG TABS Take 1 tablet by mouth daily. 0 01/10/2023 Active hydrOXYzine (ATARAX) 50 MG tablet Take 1 tablet (50 mg total) by mouth 3 (three) times a day as needed for itching. 0 Active folic acid (FOLVITE) tablet 1 mg Take 1 tablet (1 mg total) by mouth daily. 0 Active Active Problems No known active problems Family History Medical History Relation Name Comments Cancer Father PROSTATE Relation Name Status Comments Father Social History Tobacco Use Types Packs/Day Years Used Date Smoking Tobacco: Never Smokeless Tobacco: Never Tobacco Cessation:Counseling Given: Not Answered Alcohol Use Standard Drinks/Week Comments Not Currently 0 (1 standard drink = 0.6 oz pur e alcohol) none since 12/2022 Sex and Gender Information Value Date Recorded Sex Assigned at Male 12/22/2022 8:22 AM EST Gender Identity Not on file Sexual Orientation Not on file Job Start Date Occupation Industry Not on file Not on file Not on file Last Filed Vital Signs Vital Sign Reading Time Taken Comments Blood Pressure 157/84 02/08/2024 1:49 PM EDT Pulse 72 02/08/2024 1:49 PM EDT Temperature 36.7 C (98.1 F) 02/08/2024 1:49 PM EDT Respiratory Rate - - Oxygen Saturation 98% 02/08/2024 1:49 PM EDT Inhaled Oxygen Concentration - - Weight 94.5 kg (208 lb 6.4 oz) 02/08/2024 1:49 P M EDT Height 175.3 cm (5' 9 ) 02/08/2024 1:49 PM EDT Body Mass Index 30.78 02/08/2024 1:49 PM EDT Plan of Treatment Health Maintenance Due Date Last Done Comments Hepatitis C Screening 1960 COVID-19 Vaccine (#1) 1960 Depression Screening 1972 Preventative Health Evaluation 1978 DTap / Tdap / Td (1 - Tdap) 1979 Colon Cancer Screening (Colonoscopy) 2005 Shingrix-Zoster Vaccine (1 of 2) 2010 Fall Risk Assessment 2025 Pneumococcal Vaccine (2 of 2 - PCV) 2025 12/28/2020 Influenza Vaccine (#1) 2025 12/28/2020 RSV Adult > 60+ Yrs or Pregn ant (1 - 1-dose 75+ series) 2035 Pneumococcal Vaccine Aged Out 12/28/2020 No long er eligible based on patient's age to complete this topic Hepatitis B Vaccines Aged Out No long er eligible based on patient's age to complete this topic RSV Ped < 20 months Aged Out No longe r eligible based on patient's age to complete this topic Care Teams Certified Addiction Counselor Relationship Specialty Start Date End Date Sohail Apple MD [address] [facility] [place] [address] PCP - General Internal Medicine 12/22/22
--- NOTE | 2025-06-26 16:41 | MHC.CLN ---
when attempting to draw patient labs pt stated if i poke him with a needle he woud punch, Pt was redirected asked if refused. He stated Go ahead draw labs, when attempting 2nd time patient stared in aggressive manner. A male tech was asked to obtain the labs. He was successful and sent the labs.
[2025-06-26 16:55] LABS: Hematocrit 43.8 % (42.0-52.0); Hemoglobin 15.0 g/dl (14.0-18.0); Imm Gran Abs Auto 0.01 X10*3/uL (0.00-0.03); Imm Gran Pct Auto 0.3 % (0.0-0.4); Lymphocytes Absolute Auto 1.6 X10*3/uL (1.2-4.9); Mean Corpuscular HGB Conc 34.2 g/dl (31.0-36.0); Mean Corpuscular Hemoglobin 28.7 pg (27.0-33.0); Mean Corpuscular Volume 83.9 fL (80.0-98.0); NRBC Abs Auto 0.000 X10*3/uL (0.0-0.012); NRBC Pct Auto 0.0 /100WBC (0.0-0.2); Platelet Count 223 X10*3/uL (160-400); Red Blood Count 5.22 X10*6/uL (4.60-5.80); White Blood Count 3.8 X10*3/uL (4.8-10.8)
[2025-06-26 16:58] LABS: Alanine Aminotransferase 33 U/L (0-40); Albumin Level 4.0 g/dL (3.5-5.0); Alkaline Phosphatase 99 U/L (39-117); Anion Gap 19 (12-20); Aspartate Amino Transferase 38 U/L (5-37); Blood Urea Nitrogen 8 mg/dL (9-16); Calcium 8.5 mg/dL (8.4-10.2); Carbon Dioxide 19 mmol/L (22-29); Chloride 109 mmol/L (96-108); Creatinine Clr Calc Pharmacy 79.1; Estimated Glomerular Filt Rate > 60; Magnesium 2.3 mg/dL (1.6-2.6); Potassium 4.0 mmol/L (3.3-5.1); Sodium 143 mmol/L (135-145); Total Protein 7.9 g/dL (6.5-8.0)
[2025-06-26 18:00] VITALS: BP 152/83; PULSE 82; RESP 18; O2SAT 97
[2025-06-26 20:03] VITALS: BP 152/83; PULSE 82; RESP 18; TEMP 36.6; O2SAT 97
== END 2025-06-26 20:04 | disposition home or self-care (01) ==
PROVIDERS: Emergency Provider Emergency Medicine; PCP Internal Medicine
DX: F10.129 Alcohol abuse with intoxication, unspecified (principal); Y90.8 Blood alcohol level of 240 mg/100 ml or more; M54.6 Pain in thoracic spine; Z79.899 Other long term (current) drug therapy
CPT/HCPCS: 36415; 80053; 80307; 81003; 83735; 85025; 99284; S9485